=== PATIENT | female | born 1995 | race Caucasian/White ===

== ENCOUNTER 2023-12-07 21:00 | Emergency (ER) | payer OTHER, SELFPAY ==
[2023-12-07 21:02] VITALS: BP 120/77
[2023-12-07 21:27] VITALS: BP 95/54
[2023-12-07 21:35] LABS: Urine Albumin Negative (Neg - Trace); Urine Bilirubin Negative (Negative); Urine Character Clear (Clear); Urine Color Yellow; Urine Glucose Negative (Negative); Urine Ketone Negative (Negative); Urine Leukocyte Negative (Negative); Urine Nitrite Negative (Negative); Urine Occult Blood Negative (Negative); Urine Urobilinogen Negative (Neg - 1+)
[2023-12-07 21:37] LABS: HCG, Urine Qualitative Screen Negative
--- NOTE | 2023-12-07 21:38 | ED.GENMED ---
History of Present Illness
General
Chief Complaint: Dizziness
Time Seen by Provider: 12/07/23 21:38
History of Present Illness
History of Present Illness:
HPI: The patient has multiple complaints. Over the past week, she has had multiple concerns including some twinges of abdominal discomfort, sensation of confusion and that she 'feel like I am out of my body', and today she developed dizziness that
worsened when she turns her head. Last night she reports some shortness of breath but currently is not short of breath. She also has some concerns for the possibility of as well.
EXAM:
GENERAL: Well appearing in no distress
HEENT: Moist oral mucosa
CARDIOVASCULAR: No murmurs, normal heart rate, regular rhythm, No chest wall tenderness
PULMONARY: No respiratory distress, breath sounds are clear and equal
ABDOMEN: Soft with no peritoneal signs, no tenderness
NEUROLOGIC: Excellent strength all extremities, no coordination deficits
PSYCHIATRIC: Appropriate mental status, normal insight and judgement
EXTREMITIES: Nontender, no edema, moves all extremities equally
SKIN: No rash, no lesions
TIME OF INITIAL ENCOUNTER: 9:45 PM
NUMBER AND COMPLEXITY OF PROBLEMS ADDRESSED AT THE ENCOUNTER
� Chronic conditions affecting care: Anxiety, bipolar
� Acute Exacerbation and/or Progression of Chronic Illness: This is an acute problem
� Differential Diagnosis includes: Anxiety, BPPV, anemia, dehydration, , based on vital signs PE very unlikely that she is 100% on room air and heart rates in the 60s
AMOUNT AND/OR COMPLEXITY OF DATA TO BE REVIEWED AND ANALYZED
� I performed an independent evaluation of and my interpretation is:
EKG: Sinus 66, borderline criteria for LAE, nonspecific ST abnormality
CT:
X-rays:
Laboratory Studies: Urinalysis shows no sign of infection, hCG negative, white count and hemoglobin are both normal, chemistries (with exception of potassium which is hemolyzed) including glucose unremarkable
Other:
� Review of other/old records: No old records available for review in [facility]
� Clinical information was obtained by an independent historian: None needed
� Prescriptions/Medications Considered but not given:
� Further testing considered but not performed:
RISK OF COMPLICATIONS AND/OR MORBIDITY OR MORTALITY OF PATIENT MANAGEMENT
� Social determinants of health affecting care: Lives at home
� Discussion with other providers:
� Escalation of care including admission/observation vs risk of discharge considered: Although triage systolic was 120, at times, blood pressure is slightly low with systolics around 100 however she is not tachycardic and she is
very well-appearing. She has multiple complaints ED workup unremarkable and physical exam also relatively unremarkable. She was given IV fluids and she does report improvement prior to discharge.
Phy Exam
Physical Exam
Physical Exam:
See HPI
Course
Orders/Labs/Results
Orders:
Orders
12/07/23 21:06
Electrocardiogram (*1) Urgent
Reason for Study: Vertigo / Dizzy
EKG- Treatment ONCE
12/07/23 21:14
Test Result ONCE
12/07/23 21:18
HCG, Urine Qualitative Screen Urgent
Date Specimen was Collected: 12/07/23
Time Specimen was Collected: 21:14
Urinalysis Reflex To Culture Urgent
Date Specimen was Collected: 12/07/23
Time Specimen was Collected: 21:14
12/07/23 21:44
0.9% Sodium Chloride 1000 ml [Nss] 1,000 ml IV BOLUS
12/07/23 21:54
Basic Metabolic Panel Urgent
Complete Blood Count/With Diff Urgent
Abnormal Lab Results
12/07/23
21:54
MCV 80.5 L fL
(81.0-99.0)
MPV 11.6 H fL
(7.4-10.4)
Absolute Monos (auto) 0.7 H 10^3/uL
(0.1-0.6)
12/07/23 21:54
12/07/23 21:54
Vital Signs
Temp: 98.4 F
Initial and Last Documented VS:
Initial Vital Signs
Pulse Resp BP Pulse Ox
78 18 120/77 100
12/07/23 21:02 12/07/23 21:02 12/07/23 21:02 12/07/23 21:02
Last Documented Vital Signs
Temp Pulse Resp BP Pulse Ox
98.4 F 66 18 113/73 100
12/07/23 22:40 12/07/23 23:04 12/07/23 23:04 12/07/23 23:04 12/07/23 23:04
*Critical Care Note
Total Time (30-74mins, 75-104mins- exclusive of procedures): Not Applicable
ED Attending Note
-
Portions of this chart may have been created with voice recognition software.� Occasional wrong word or��sound alike� substitutions may have occurred due to the inherent limitations of voice recognition software.
Discharge Plan
Departure
Patient Disposition: Home (Routine Discharge)
Date of Disposition: 12/07/23
Time of Disposition: 22:47
Patient with high blood pressure during this ER visit?: Yes
Discharge Problem:
Dizziness
Instructions: Dizziness
Referrals:
NONE,* [Family Provider] -
Activity Restrictions/Additional Instructions:
The cause of your symptoms is unclear. Basic blood work, EKG, testing, and urinalysis are all normal. Return here if worse or any other concerns.
Interventions
Interventions:
*Risk Screen - Suicide Last Done: 12/07/23 21:02
*General Assessment Last Done: 12/07/23 21:02
*Neglect/Abuse Screening Last Done: 12/07/23 21:02
*ED COVID-19 Vaccine History Last Done: 12/07/23 21:02
*Nursing Disposition Last Done: 12/07/23 23:30
ED- Neurological Assessment Last Done: 12/07/23 21:53
Discharge Date and Time
Discharge Date/Time: 12/08/23 00:10
Print Language: FRENCH
[2023-12-07 21:41] VITALS: BP 103/65
[2023-12-07] MEDS: NSS 1000 IV (21:51)
[2023-12-07 21:55] VITALS: BP 100/69
[2023-12-07 22:00] VITALS: BP 106/73
[2023-12-07 22:04] LABS: % Eosinophils 3.7 % (0-6); % Immature Granulocytes 0.3 % (0-0.5); % Lymphocytes 26.4 % (20.5-51.1); % Monocytes 7.6 % (1.7-9.3); Absolute Basophils 0.1 10^3/uL (0-0.2); Absolute Eosinophils 0.4 10^3/uL (0-0.7); Absolute Lymphocytes 2.6 10^3/uL (1.2-3.4); Absolute Monocytes 0.7 10^3/uL (0.1-0.6); Absolute Neutrophils 5.9 10^3/uL (1.4-6.5); Hematocrit 37.2 % (37.0-47.0); Hemoglobin 13.1 g/dL (12.0-16.0); Mean Corp Hgb Conc. 35.2 g/dL (33.0-37.0); Mean Corpuscular Hgb 28.4 pg (27.0-31.0); Mean Corpuscular Volume 80.5 fL (81.0-99.0); Mean Platelet Volume 11.6 fL (7.4-10.4); Nucleated Red Blood Cells % 0 %; Platelet Count 267 10^3/uL (130-400); Red Blood Cell Count 4.62 10^6/uL (4.20-5.40); Red Cell Dist. Width 12.4 % (11.5-14.5); White Blood Cell Count 9.7 10^3/uL (4.8-10.8)
[2023-12-07 22:37] LABS: Blood Urea Nitrogen 11 mg/dl (7-17); Calcium 9.3 mg/dl (8.4-10.2); Carbon Dioxide 23 mmol/L (22-30); Chloride 103 mmol/L (98-107); Glucose 89 mg/dl (70-99); Sodium 137 mmol/L (135-145); eGFR > 60.00
[2023-12-07 23:04] VITALS: BP 113/73
== END 2023-12-08 00:10 | disposition home or self-care (01) ==
LOC: EMR 21:00
PROVIDERS: Emergency Medicine; EMERGENCY PHYSICIAN Emergency Medicine
DX: R42 Dizziness and giddiness (principal)
CPT/HCPCS: 99283; 96374; 80048; 81003; 81025; 85025; 93005

== ENCOUNTER 2024-07-27 19:51 | Emergency (ER) | payer BC, SELFPAY ==
[2024-07-27 19:57] VITALS: BP 121/79
--- NOTE | 2024-07-27 21:17 | ED.GENMED ---
History of Present Illness
General
Chief Complaint: Skin Surface Trauma
Source: patient
Exam Limitations: none
Time Seen by Provider: 07/27/24 21:16
History of Present Illness
History of Present Illness:
See MDM
Past History
Past History
ED Past Medical History: None
ED Past Surgical History: None
Social History
Tobacco: Non-smoker
Alcohol: None
Phy Exam
Physical Exam
Physical Exam:
See MDM
Course
Vital Signs
Initial and Last Documented VS:
Initial Vital Signs
Temp Pulse Resp BP Pulse Ox
98.1 F 93 16 121/79 98
07/27/24 19:57 07/27/24 19:57 07/27/24 19:57 07/27/24 19:57 07/27/24 19:57
Last Documented Vital Signs
Temp Pulse Resp BP Pulse Ox
98.1 F 93 16 121/79 98
07/27/24 19:57 07/27/24 19:57 07/27/24 19:57 07/27/24 19:57 07/27/24 19:57
Procedures
Laceration Closure
Right Anterior Medial Eye brow:
Status of Wound: clean
Size of Wound in cm: 0.5
Description of Wound Edges: sharp
Preparation: cleaned with soap & water
Revision/Debridement: routine- no revision
Wound exploration: explored to base- no FB
Type of Closure: single layer closure
Skin Closure Material: 5-0 nylon
Number of sutures: 1
MDM/Problems Addressed
Differential Diagnosis Includes:
HPI and MDM Narrative:
29-year-old female presenting for evaluation of right eyebrow injury. Patient states she hit her head on the car door. She states that her tetanus is up-to-date. Patient denies any headache, nausea or vomiting. On exam, there is a subcentimeter
superficial laceration to her right medial eyebrow. We discussed glue versus stitches. Patient opted for stitches
Physical exam
General: Well appearing and non-toxic
HEENT: protecting airway
Neck: appears supple
CV: No evidence of cyanosis
Resp: No accessory muscle use
Abd: Non-distended
Extremities: No deformities
Neuro: alert
Psych: Normal affect
Skin: Subcentimeter superficial laceration to right medial eyebrow
Problems Addressed including Acute and Chronic Conditions affecting care:
1. Small facial laceration
Acuity: acute
Prognosis: stable
Details: 1 stitch placed with good cosmetic effect
Differential Diagnosis (but not limited to): Abrasion, laceration
Testing considered: CT head but she has no clinical findings to suggest intracranial hemorrhage
Drug therapy (if applicable): OTC meds, please see d/c instruction regarding Rx drugs
Amount and/or Complexity of Data Reviewed
Clinical info obtained from: Patient
External data reviewed: N/A
Labs I independently reviewed (but not limited to): N/A
Radiology: N/A
Pulse Ox: not hypoxic
EKG independently reviewed: N/A
Railroad Hand: N/A
Critical Care: N/A
Risk of Complication:
Social Determinants of health: Good social support
Discussed with other providers: N/A
Escalation of Care includes Admit/Obs: After being observed in the Emergency Department, pt stable for discharge.
Occasional wrong word or 'sound a like' substitutions may have occurred due to the inherent limitations of voice recognition software. Read the chart carefully and recognize, using context, where substitutions have occurred.
*Critical Care Note
Total Time (30-74mins, 75-104mins- exclusive of procedures): Not Applicable
ED Attending Note
-
Portions of this chart may have been created with voice recognition software.� Occasional wrong word or��sound alike� substitutions may have occurred due to the inherent limitations of voice recognition software.
Discharge Plan
Departure
Patient Disposition: Home (Routine Discharge)
Date of Disposition: 07/27/24
Time of Disposition: 21:32
Patient with high blood pressure during this ER visit?: No
Discharge Problem:
Facial laceration
Instructions: Laceration Repair With Stitches (DC)
Activity Restrictions/Additional Instructions:
Keep wound clean and dry, change dressing if it becomes soiled or wet. Watch for signs of infection: fever over 100.5', increasing pain, red streaks around wound, swelling, drainage of pus, or bad smell. If any of these happen, return to ED
promptly. Return to ED or make an appointment with your doctor to have the 1 suture removed in 5-7 days. All wounds may scar, however you may reduce the appearance of scarring by avoiding sun exposure to the scar and applying skin moisturizer with
spf protection to the scar once the wound is healed.
Interventions
Interventions:
*Risk Screen - Suicide Last Done: 07/27/24 19:57
*General Assessment Last Done: 07/27/24 19:57
*Neglect/Abuse Screening Last Done: 07/27/24 19:57
*ED COVID-19 Vaccine History Last Done: 07/27/24 19:57
ED-Skin Assessment Last Done: 07/27/24 21:31
Discharge Date and Time
Print Language: MACEDONIAN
== END 2024-07-27 22:16 | disposition home or self-care (01) ==
LOC: EMR 19:51
PROVIDERS: EMERGENCY PHYSICIAN Student in an Organized Health Care Education/Training Program
DX: S01.81XA Laceration without foreign body of other part of head, initial encounter (principal); W22.8XXA Striking against or struck by other objects, initial encounter
CPT/HCPCS: 99282; 12011